=== PATIENT | male | born 1930 | race Caucasian/White ===

== ENCOUNTER 2019-08-28 07:22 | Day surgery (SDC) | payer MEDICARE, BC ==
--- NOTE | 2019-07-08 07:35 | History and Physical - [facility] ---
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 Due to the failure of therapies and after careful review of his studies and confirmation through MRI's, x-rays, flexion and extension studies he is here for interspinal spacer implant at L2-L3, L3-L4, and possibly L4-L5. PAST MEDICAL HISTORY: Noncontributory. PAST SURGICAL HISTORY: Knee surgery, cervical spine fusion, and rotator cuff surgery. EMPLOYMENT STATUS: Retired. MEDICATIONS ON ADMISSION: List to be provided. No blood thinners. ALLERGIES: None. FAMILY/PSYCHOSOCIAL HISTORY: Social history - Caffeine. Family history - Cardiac disease. SYSTEMS REVIEW: The patient seems appropriate in no acute distress. The remainder of the systems review is positive for glasses. PHYSICAL EXAMINATION: Height is 5'8", weight is 150. Vital signs - Blood pressure is 140/90. Current examination shows diffuse tenderness lumbar spine. Range of motion does produce pain throughout the low back and extending towards the front and back surface of both legs. Ambulation - No assistive device utilized. NEUROLOGIC: Cranial nerves are intact. Ambulation does produce pain into the lower extremities which is relieved by forward flexing and bending. An assistive device is used when necessary although currently the assistive device doesn't appear to be present. He finds that any extension of his low back does seem to provoke his symptoms. He has pain while walking. He has numbness and tinging in his legs when walking upright. There is weakness periodically and loss of balance when walking. He finds relief whenever he leans forward or bends forward. He does use a cane or walker and finds by forward flexing it helps relieve his pain with the cane or the walker stabilizing his ambulation. IMPRESSION: 1. LUMBAR RADICULOPATHY, ICD-10 CODE M54.16 AND M54.17. 2. LUMBAR SPINAL STENOSIS WITH NEUROGENIC INTERMITTENT CLAUDICATION, ICD-10 CODE M48.060. PLAN: The patient is here for interspinal spacer placement at L2-L3 and L3-L4 and possibly at L4-L5. The procedure will be considered outpatient, an overnight stay will not be necessary, but will be evaluated. The potential risks, side effects and complications have been carefully reviewed to the patient and his daughter. Information provided by the creative writing english professor of the device has also been reviewed and discussed. His restrictions for the next four to six weeks have been carefully reviewed and discussed in a recent face to face evaluation. All questions were answered. cc: Yefri Dumont M.D. JOB NUMBER: [id number] MTDD
--- NOTE | 2019-08-28 06:49 | History and Physical - [facility] ---
CHIEF COMPLAINT/HISTORY OF CHIEF COMPLAINT: This patient presents with a history of an intractable lumbar radiculopathy. Due to the failure of therapy a spinal cord stimulator trial was conducted with 75+% pain control. Due tot the failure of therapy and the success of the trial, he is here for implantation of a permanent system. PAST MEDICAL HISTORY: Noncontributory. PAST SURGICAL HISTORY: Knee surgery, cervical spine surgery, and rotator cuff surgery. EMPLOYMENT STATUS: Retired. MEDICATIONS ON ADMISSION: List to be provided. No blood thinners. ALLERGIES: None. FAMILY/PSYCHOSOCIAL HISTORY: Social history - Caffeine. Family history - Cardiac disease. SYSTEMS REVIEW: The patient is appropriate in no acute distress. PHYSICAL EXAMINATION: Height is 5'8", weight is 150. No vital signs. HEENT: Within normal limits. LUNGS: Clear. HEART: Rapid and regular. ABDOMEN: Nontender. MUSCULOSKELETAL: Examination of the musculoskeletal systems shows diffuse tenderness throughout the lumbar spine. Range of motion produces pain into both legs. Ambulation - No assistive device is utilized although there is one available. He has mild motor and sensory abnormalities to both legs. NEUROLOGIC: Cranial nerves are intact. IMPRESSION: LUMBAR RADICULOPATHY, ICD-10 CODE M54.16 AND M54.17. PLAN: The patient is here for a permanent implanted spinal cord stimulator. The procedure will be considered outpatient although an overnight stay will be evaluated. The potential risks, side effects and complications have been reviewed and discussed. He was put in contact with a clinical specialist who also answered all of his questions. JOB NUMBER: [id number] MTDD
[~2019-08-28 07:22] MED LIST: ACETAMINOPHEN 1,000 MG/100 ML BTL IVPB ONE; CEFAZOLIN 2 Gram 2 GM/50 ML BAG IVPB ONE; FAMOTIDINE 20MG TABLET PO ONE; MECLIZINE 25 MG TABLET PO ONE; METOCLOPRAMIDE 10 MG TABLET PO ONE
[2019-08-28] MEDS ORDERED: MIDAZOLAM HCL 2MG/2ML VIAL IV ONE (07:23)
[2019-08-28] MEDS ORDERED: LIDOCAINE 2% MDV (20MG/ML) 20ML VIAL IV ONE (07:23)
[2019-08-28] MEDS ORDERED: FENTANYL PF 100MCG/2ML VIAL IV ONE (07:23)
[2019-08-28] MEDS ORDERED: PROPOFOL 10 MG/ML VIAL IV ONE (07:23)
[2019-08-28] MEDS ORDERED: RINGERS SOLUTION,LACTATED 1,000 ML IV ONE ×2 (08:35→10:50)
[2019-08-28] MEDS ORDERED: CEFAZOLIN 1G VIAL IR ONE (10:09)
[2019-08-28] MEDS ORDERED: BUPIVACAINE 0.5% W/EPI MPF 30 ML VIAL SQ ONE (10:09)
[2019-08-28] MEDS ORDERED: LIDOCAINE 1% W/EPI 1:100,000 MDV 20 ML VIAL SQ ONE (10:09)
--- NOTE | 2019-08-30 09:29 | RADIOLOGY REPORT ---
EXAMINATION: Thoracolumbar Spine Single View EXAM DATE: 08/28/2019 11:31 AM TECHNIQUE: Single AP view INDICATION: S/P SCS IMPLANT, LEADS AND GENERATOR COMPARISON: 08/10/2019 ENCOUNTER: Initial FINDINGS: Epidural lower thoracic spinal stimulator in place, position without appreciable change since 019. Thoracolumbar advanced degenerative changes with large marginal osteophytes and degenerative scoliosi s. IMPRESSION: Spinal stimulator in place. Dictated by: Hitesh Calle MD on 08/30/2019 9:25 AM. .
--- NOTE | 2019-08-31 09:07 | Operative Note - [facility] ---
DATE OF SURGERY: 08/28/2019 PREOPERATIVE DIAGNOSIS: LUMBAR RADICULOPATHY, ICD-10 CODE M54.16 AND M54.17. OPERATION: 1. FLUOROSCOPICALLY GUIDED EPIDURAL ACCESS LEFT T11-T12, PLACEMENT OF SPINAL CORD STIMULATOR LEAD 1 [employer] 16, 6-ELECTRODES POSITIONED LEFT T7. 2. FLUOROSCOPICALLY GUIDED EPIDURAL ACCESS LEFT T12-L1, PLACEMENT OF SPINAL CORD STIMULATOR LEAD 2 [employer] 16, 6-ELECTRODES POSITIONED RIGHT T7. 3. COMPLEX PROGRAMMING LEAD 1 OVER TWENTY MINUTES FOLLOWED BY COMPLEX PROGRAMMING LEAD 2 OVER TWENTY MINUTES. 4. INCISION, SUBCUTANEOUS DISSECTION, ANCHORING LEAD 1 AND LEAD 2 TO SUPRASPINOUS FASCIA WITH A [employer] LOCKING ANCHOR NONABSORBABLE SUTURE. 5. INCISION, SUBCUTANEOUS DISSECTION, CREATION OF SUBCUTANEOUS POUCH AT LEFT POSTERIOR GLUTEAL MARGIN, PLACEMENT OF GENERATOR [employer] PROGRAMM[employer] RECHARGEABLE WAVEWRITER. 6. TUNNELLING BETWEEN POUCHES, PLACEMENT OF EXTERNAL PORTION OF LEAD 1 AND LEAD 2 INTO GENERATOR POUCH, EACH LEAD INTERFACED WITH GENERATOR. 7. CLOSURE OF INCISIONS USING STRATAFIX SUTURE 2-0 FASCIA AND 3-0 SKIN. DERMABOND CLOSURE APPROXIMATING THE EDGES OF THE WOUND. 8. COMPLEX RECOVERY ROOM PROGRAMMING INTERNAL GENERATOR HOME USE TWO STIMULATORS TWENTY MINUTES. SURGEON: Alphonso Young D.O. INDICATION: This patient presents with a history of an intractable lumbar radiculopathy. Due to the failure of all therapies and the success of a spinal cord stimulator trial, the patient presents today for implantation of a permanent system. PROCEDURE: Intravenous line, vital sign monitoring, IV sedation, prepped and draped, sterile technique, and under imaging with local for infiltration and sterile technique the epidural interspace on the left at T11-T12 and T12-L1 are both marked, infiltrated with local, and then two standard epidural needles with loss of resistance into the space. At T11-T12, the spinal cord stimulator Lead 1 a [employer] 16, 6-electrodes was positioned left at T7. With the access at T12-L1 both access points were atraumatic. No blood. No CSF. Spinal cord stimulator Lead 2 [employer] 16, 6-electrodes was positioned right at T7. With the patient awake complex programming of Lead 1 over twenty minutes followed by complex programming of Lead 2 over twenty minutes resulting in a complete pattern of stimulation across the back and into the legs, patient indicating we hit all of the areas of the pain. He was at that point given the option to implant, continue to program or remove and he opted to implant. The question was repeated with the same response. He was re- sedated, the skin above and below both needles was infiltrated, an incision was made and subcutaneous dissection was conducted to the supraspinous fascia. The needle was removed and each lead was anchored to the supraspinous fascia with [employer] locking anchor. At the left posterior gluteal margin the site picked by the patient for the generator the skin was infiltrated, an incision was made and subcutaneous dissection was conducted to form a pouch of suitable size and depth for the generator, a [employer] programmable rechargeable WaveWriter. A tunnelling tool was used to carry the leads into the generator pouch, each lead was interfaced with the generator. Antibiotic irrigation, Bovie for hemostasis. The generator was placed into the pouch, the leads were placed into their own pouch, and then the incisions were closed using [employer] suture 2-0 fascia and 3-0 skin. Dermabond closure was used to approximate the edges of both wounds. He was transferred to the Recovery Room stable. No side effects from the procedure or sedation. When fully awake and alert he was requesting discharge. DISCHARGED INSTRUCTIONS: 1. The sites are to remain clean and dry. No showering or bathing in any way although the Dermabond will allow showering, he should not sit in water. 2. Standard medications resumed. He has been provided with antibiotic Levaquin 500 mg once a day for fourteen days and [place] the analgesic for postoperative pain control. 3. The office is to contact the patient in the next 12-24 hours to set up a time in 7-10 days for the evaluation of sites. Until then he is to keep his activities low and controlled. All other instructions provided. Numbers to contact if problems given. He was then discharged. JOB NUMBER: [id number] [facility]
== END 2019-08-28 12:14 | disposition home or self-care (01) ==
LOC: SUR 07:22
PROVIDERS: ATTEND Pain Medicine Interventional Pain Medicine
DX: M54.16 Radiculopathy, lumbar region (principal); M54.17 Radiculopathy, lumbosacral region; E78.00 Pure hypercholesterolemia, unspecified
CPT/HCPCS: 72020; 95972; C1820; C1883; J0690; J7120